=== PATIENT | male | born 2005 | race Hispanic/Latino ===

== ENCOUNTER 2024-03-23 18:11 | Emergency (ER) | payer SELFPAY ==
[2024-03-23 18:23] VITALS: BP 141/70
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
[2024-03-23] MEDS: KEFLEX 500 MG PO (20:13)
[2024-03-23 21:06] VITALS: BP 123/77
== END 2024-03-23 21:11 | disposition home or self-care (01) ==
LOC: EMR 18:11
PROVIDERS: EMERGENCY PHYSICIAN Emergency Medicine; FAMILY PHYSICIAN Pediatrics
DX: S90.852A Superficial foreign body, left foot, initial encounter (principal); W45.8XXA Other foreign body or object entering through skin, initial encounter
CPT/HCPCS: 99283; 73630; 90715